=== PATIENT | female | born 1965 | race Caucasian/White ===

== ENCOUNTER 2016-10-20 08:13 | Emergency (ER) | payer BC, OTHER ==
[~2016-10-20] VITALS: Ht 170.2 cm; Wt 102.3 kg
[~2016-10-20 08:13] MED LIST: 12 HOUR DECONG120 M1 PO; ACTOS15 MG PO; ADVIL,NUPRIN,M200 MG PO; AFRIN,GENASAL D15 ML BOTH NARES; AMARYL4 MG PO; ASPIRIN81 M2 PO; CARVEDILOL3.125 MG PO; COUMADIN4 MG PO; COUMADIN5 MG PO; FAMOTIDINE20 MG PO; FLONASE16 G1 BOTH NARES; GLIMEPIRIDE4 MG PO; GLUCOPHAGE XR750 MG PO; HYDROCODON-ACE1 EAC7 PO; INVOKANA100 MG PO; INVOKANA300 MG PO; LANTUS 10100 UNITS/ SC; LANTUS 3 M100 UNITS1 SC; LIPITOR40 MG PO; LISINOPRIL2.5 MG PO; LOVENOX100 MG/1 M SC; METFORMIN HCL1000 MG PO; METFORMIN HCL500 MG PO; NEXIUM40 MG PO; NOVOLOG 10100 UNITS/ SC; PAXIL40 MG PO; PREDNISONE20 MG PO; PRILOSEC20 MG PO; SALINE NASAL SP45 ML BOTH NARES; TYLENOL WITH C1 EACH PO
[2016-10-20 08:30] VITALS: BP 122/88
[2016-10-20] MEDS ORDERED: AUGMENTIN875 MG PO (09:13)
[2016-10-20] MEDS ORDERED: METFORMIN HCL750 MG PO (09:41)
[2016-10-20] MEDS ORDERED: XARELTO20 MG PO (09:41)
[2016-10-20] MEDS ORDERED: BYDUREON P2 MG/0.65 SC (09:43)
== END 2016-10-20 09:49 | disposition home or self-care (01) ==
LOC: EME 08:13
PROC: 3E0234Z Introduction of Serum, Toxoid and Vaccine into Muscle, Percutaneous Approach (ICD-10-PCS; principal; 2016-10-20)
DX: S61.452A Open bite of left hand, initial encounter (principal); W54.0XXA Bitten by dog, initial encounter; E11.9 Type 2 diabetes mellitus without complications; Z79.84 Long term (current) use of oral hypoglycemic drugs
CPT/HCPCS: 73090; 73130; 99281; 99284

== ENCOUNTER 2016-12-14 11:59 | Emergency (ER) | payer BC, OTHER ==
[~2016-12-14] VITALS: Ht 170.2 cm; Wt 95.7 kg
[~2016-12-14 11:59] MED LIST changes: +AUGMENTIN875 MG PO; +BYDUREON P2 MG/0.65 SC; +METFORMIN HCL750 MG PO; +XARELTO20 MG PO
[2016-12-14 14:13] LABS: HEMATOCRIT 42.9 % (36.0-46.0); MCH 23.1 PG (29.0-34.0); MCHC 30.5 G/DL (30.0-36.0); MCV 75.5 FL (83-99); MEAN PLAT.VOLUME 10.6 uM^3 (9.5-12.4); PLATELET COUNT 335 K/uL (156-360); RBC DIS.WIDTH-CV 15.4 % (11.8-14.6); RBC DIS.WIDTH-SD 41.9 % (39-53); RED BLOOD COUNT 5.68 M/uL (3.80-5.20); WHITE BLOOD COUNT 19.9 K/uL (4.1-10.2)
[2016-12-14 14:26] LABS: CHLORIDE 106 mEq/L (99-109); POTASSIUM 3.1 mEq/L (3.7-5.4); SODIUM 143 mEq/L (136-147)
[2016-12-14 14:28] LABS: GLUCOSE 158 mg/dL (70-99)
[2016-12-14 14:29] LABS: ANION GAP 15 MEQ/L (2-14)
[2016-12-14 14:30] LABS: TOTAL BILIRUBIN 0.4 mg/dL (0.0-1.0)
[2016-12-14 14:32] LABS: ALKALINE PHOSPHATASE 155 IU/L (3-129); GFR ESTIMATE (CALCULATED) 56 mL/min/
[2016-12-14 14:33] LABS: UREA NITROGEN (BUN) 24 mg/dL (9-23)
[2016-12-14 14:35] LABS: LIPASE 5 U/L (1.0-51.0)
[2016-12-14 15:26] LABS: ADD MIUA? YES; BILIRUBIN MODERATE; BLOOD NEGATIVE; COLOR AMBER ((YELLOW)); GLUCOSE (STRIP) NEGATIVE; KETONES 20; LEUKOCYTES TRACE; NITRITE NEGATIVE; PROTEIN (STRIP) 100; SPECIFIC GRAVITY 1.038 (1.000-1.030); UROBILINOGEN 0.2 MG/DL (0.2-1.0)
[2016-12-14 15:44] LABS: BACTERIA NONE SEEN /HPF; EPITHELIAL CELLS 1+ /HPF; HYALINE CASTS 40-50 /LPF; MUCUS 4+ /LPF
[2016-12-14] MEDS ORDERED: BENTYL10 MG PO (15:56)
[2016-12-14] MEDS ORDERED: ZOFRAN ODT4 MG PO (15:56)
[2016-12-14] MEDS ORDERED: CIPRO500 MG PO (15:56)
[2016-12-14 16:06] LABS: ICTOTEST NEGATIVE
[2016-12-14 16:43] VITALS: BP 126/85
== END 2016-12-14 16:43 | disposition home or self-care (01) ==
LOC: EME 11:59
PROVIDERS: Nurse Practitioner Family
DX: K52.9 Noninfective gastroenteritis and colitis, unspecified (principal); K21.9 Gastro-esophageal reflux disease without esophagitis; E11.9 Type 2 diabetes mellitus without complications; Z79.84 Long term (current) use of oral hypoglycemic drugs; Z86.718 Personal history of other venous thrombosis and embolism; Z98.51 Tubal ligation status
CPT/HCPCS: 74177; 80053; 81003; 83605; 83690; 85027; 87493; 99281; 99284; J1885; J2405; J7030

== ENCOUNTER 2016-12-16 09:16 | Inpatient (IN) | payer BC, OTHER ==
[~2016-12-16] VITALS: Ht 170.2 cm; Wt 95.7 kg
[~2016-12-16 09:16] MED LIST changes: +BENTYL10 MG PO; +CIPRO500 MG PO; +ZOFRAN ODT4 MG PO
[2016-12-16 11:00] LABS: HEMATOCRIT 39.5 % (36.0-46.0); MCH 23.1 PG (29.0-34.0); MCHC 30.1 G/DL (30.0-36.0); MCV 76.7 FL (83-99); MEAN PLAT.VOLUME 10.8 uM^3 (9.5-12.4); PLATELET COUNT 272 K/uL (156-360); RBC DIS.WIDTH-CV 15.3 % (11.8-14.6); RBC DIS.WIDTH-SD 42.5 % (39-53); RED BLOOD COUNT 5.15 M/uL (3.80-5.20); WHITE BLOOD COUNT 18.2 K/uL (4.1-10.2)
[2016-12-16 11:10] LABS: CHLORIDE 109 mEq/L (99-109); POTASSIUM 3.5 mEq/L (3.7-5.4); SODIUM 146 mEq/L (136-147)
[2016-12-16 11:13] LABS: ANION GAP 14 MEQ/L (2-14)
[2016-12-16 11:16] LABS: GFR ESTIMATE (CALCULATED) > 59 mL/min/
[2016-12-16 11:17] LABS: UREA NITROGEN (BUN) 23 mg/dL (9-23)
[2016-12-16 11:18] LABS: GLUCOSE 118 mg/dL (70-99)
[2016-12-16 12:51] LABS: ADD MIUA? YES; BILIRUBIN NEGATIVE; BLOOD NEGATIVE; COLOR YELLOW ((YELLOW)); GLUCOSE (STRIP) NEGATIVE; KETONES 20; LEUKOCYTES NEGATIVE; NITRITE NEGATIVE; PROTEIN (STRIP) 30; SPECIFIC GRAVITY 1.023 (1.000-1.030); UROBILINOGEN 0.2 MG/DL (0.2-1.0)
[2016-12-16 13:01] LABS: BACTERIA RARE /HPF; EPITHELIAL CELLS RARE /HPF; MUCUS 4+ /LPF; RED BLOOD CELLS 0-5 /HPF (0-5); UCUL ADDED? NO; WHITE BLOOD CELLS 0-5 /HPF (0-5)
[2016-12-16 14:17] LABS: C DIFF TOXIN NEGATIVE (NEGATIVE)
[2016-12-16 14:21] LABS: PROBE CHECK PASS; SPECIMEN PROCESSING CONTROL PASS
[2016-12-16 15:45] VITALS: BP 126/74
[2016-12-16 21:22] LABS: POINT-OF-CARE METER ID UU13113725
[2016-12-16 23:25] VITALS: BP 107/59
[2016-12-17 06:33] LABS: BASOPHIL COUNT 0.1 K/uL (0-0.1); EOSINOPHIL (%) 24.5 % (0-5); EOSINOPHIL COUNT 3.5 K/uL (0-0.3); HEMATOCRIT 33.4 % (36.0-46.0); IMMATURE GRANULOCYTE (%) 1.7 % (0.0-0.7); IMMATURE GRANULOCYTE COUNT 0.3 K/uL; INSTRUMENT ABS NEUTROPHIL CT 6.7 K/uL; MCHC 29.9 G/DL (30.0-36.0); MEAN PLAT.VOLUME 10.5 uM^3 (9.5-12.4); MONOCYTE (%) 5.7 % (3-12); MONOCYTE COUNT 0.8 K/uL (0-0.8); NEUTROPHIL (%) 46.5 % (45-76); NEUTROPHIL COUNT 6.7 K/uL (1.8-6.4); PLATELET COUNT 219 K/uL (156-360); RBC DIS.WIDTH-CV 15.3 % (11.8-14.6); RBC DIS.WIDTH-SD 42.2 % (39-53); RED BLOOD COUNT 4.34 M/uL (3.80-5.20); WHITE BLOOD COUNT 14.4 K/uL (4.1-10.2)
[2016-12-17 06:38] LABS: POINT-OF-CARE METER ID UU13113725
[2016-12-17 06:55] LABS: ANION GAP 7 MEQ/L (2-14); CHLORIDE 110 MEQ/L (99-109); GFR ESTIMATE (CALCULATED) > 59 mL/min/; POTASSIUM 3.2 MEQ/L (3.7-5.4); SAMPLE HEMOLYSIS CHECK 0; SAMPLE ICTERIC CHECK 0; SAMPLE LIPEMIA CHECK 0; SODIUM 143 MEQ/L (136-147); UREA NITROGEN (BUN) 19 mg/dL (9-23)
[2016-12-17 06:57] LABS: GLUCOSE 84 mg/dL (70-99)
[2016-12-17 08:23] VITALS: BP 142/67
[2016-12-17 10:56] LABS: POINT-OF-CARE METER ID UU13113725
[2016-12-17] MEDS ORDERED: FLAGYL500 MG PO (15:02)
[2016-12-17] MEDS ORDERED: LEVAQUIN750 MG PO (15:03)
[2016-12-17 16:19] VITALS: BP 140/68
== END 2016-12-17 17:43 | disposition home or self-care (01) | DRG 392 ==
LOC: EME 09:16 → 5EAST 13:03 → EDOF 13:03 → ENRESERV 13:04 → 5EAST 15:15
PROVIDERS: Emergency Medicine; Hospitalist
DX: A09 Infectious gastroenteritis and colitis, unspecified (principal); E11.9 Type 2 diabetes mellitus without complications; E87.6 Hypokalemia; K21.9 Gastro-esophageal reflux disease without esophagitis; F32.9 Major depressive disorder, single episode, unspecified; F41.9 Anxiety disorder, unspecified; Z86.711 Personal history of pulmonary embolism; Z79.01 Long term (current) use of anticoagulants; Z79.84 Long term (current) use of oral hypoglycemic drugs; Z82.49 Family history of ischemic heart disease and other diseases of the circulatory system; Z83.3 Family history of diabetes mellitus
CPT/HCPCS: 80048; 81003; 82948; 83605; 85025; 85027; 87040; 87177; 87493; 87506; 99281; 99285; J1630; J1815; J1956; J2405; J3480; J7030; S0030

== ENCOUNTER 2016-12-22 20:42 | Emergency (ER) | payer BC, OTHER ==
[~2016-12-22] VITALS: Ht 170.2 cm; Wt 92.3 kg
[~2016-12-22 20:42] MED LIST changes: +FLAGYL500 MG PO; +LEVAQUIN750 MG PO
[2016-12-22 21:07] LABS: HEMATOCRIT 41.7 % (36.0-46.0); MCH 23.4 PG (29.0-34.0); MCHC 32.1 G/DL (30.0-36.0); MCV 72.8 FL (83-99); MEAN PLAT.VOLUME 11.1 uM^3 (9.5-12.4); PLATELET COUNT 193 K/uL (156-360); RBC DIS.WIDTH-CV 16.1 % (11.8-14.6); RBC DIS.WIDTH-SD 39.5 % (39-53); RED BLOOD COUNT 5.73 M/uL (3.80-5.20); WHITE BLOOD COUNT 18.5 K/uL (4.1-10.2)
[2016-12-22 21:10] LABS: CHLORIDE 99 mEq/L (99-109); POTASSIUM 3.1 mEq/L (3.7-5.4); SODIUM 139 mEq/L (136-147)
[2016-12-22 21:13] LABS: GLUCOSE 162 mg/dL (70-99)
[2016-12-22 21:14] LABS: ANION GAP 18 MEQ/L (2-14)
[2016-12-22 21:15] LABS: TOTAL BILIRUBIN 0.8 mg/dL (0.0-1.0)
[2016-12-22 21:16] LABS: ALKALINE PHOSPHATASE 120 IU/L (3-129); GFR ESTIMATE (CALCULATED) 56 mL/min/
[2016-12-22 21:17] LABS: UREA NITROGEN (BUN) 25 mg/dL (9-23)
[2016-12-22 21:25] LABS: QUANTITATIVE HCG < 4.0 MIU/ML
[2016-12-22 22:36] LABS: ADD MIUA? YES; BILIRUBIN SMALL; BLOOD NEGATIVE; COLOR AMBER ((YELLOW)); GLUCOSE (STRIP) NEGATIVE; KETONES 20; LEUKOCYTES SMALL; NITRITE NEGATIVE; PROTEIN (STRIP) 100; SPECIFIC GRAVITY 1.028 (1.000-1.030)
[2016-12-22 23:01] LABS: BACTERIA 1+ /HPF; EPITHELIAL CELLS 1+ /HPF; MUCUS 3+ /LPF; RED BLOOD CELLS NONE SEEN /HPF (0-5); UCUL ADDED? NO; WHITE BLOOD CELLS 0-5 /HPF (0-5)
[2016-12-22 23:02] LABS: CASTS PRESENT /LPF; CRYSTALS NONE SEEN
[2016-12-23] MEDS ORDERED: ZOFRAN4 MG PO (00:46)
[2016-12-23 03:13] VITALS: BP 118/81
== END 2016-12-23 03:14 | disposition home or self-care (01) ==
LOC: EME 20:42
DX: R11.10 Vomiting, unspecified (principal); K21.9 Gastro-esophageal reflux disease without esophagitis; F32.9 Major depressive disorder, single episode, unspecified; F41.9 Anxiety disorder, unspecified; Z79.84 Long term (current) use of oral hypoglycemic drugs; Z86.718 Personal history of other venous thrombosis and embolism; Z88.8 Allergy status to other drugs, medicaments and biological substances
CPT/HCPCS: 80053; 81003; 84702; 85027; 99281; 99285; J1100; J2060; J2405; J7030

== ENCOUNTER 2017-03-31 19:49 | Emergency (ER) | payer BC, OTHER ==
[~2017-03-31] VITALS: Ht 170.2 cm; Wt 97.1 kg
[~2017-03-31 19:49] MED LIST changes: +ZOFRAN4 MG PO
[2017-03-31 19:51] VITALS: BP 138/89
== END 2017-03-31 23:09 | disposition home or self-care (01) ==
LOC: EME 19:49
DX: I87.2 Venous insufficiency (chronic) (peripheral) (principal); M79.605 Pain in left leg; Z86.718 Personal history of other venous thrombosis and embolism; K21.9 Gastro-esophageal reflux disease without esophagitis; F41.9 Anxiety disorder, unspecified; F32.9 Major depressive disorder, single episode, unspecified; Z88.5 Allergy status to narcotic agent; Z88.6 Allergy status to analgesic agent
CPT/HCPCS: 93971; 99281; 99283

== ENCOUNTER 2017-09-09 02:04 | Observation (INO) | payer BC, OTHER ==
[2017-09-09] VITALS (7 sets, daily range): BP systolic 99–133; BP diastolic 56–90
[~2017-09-09] VITALS: Ht 165.1 cm; Wt 100.8 kg
[~2017-09-09 02:04] MED LIST changes: +GLUCOPHAGE1000 MG PO; -METFORMIN HCL750 MG PO
[2017-09-09 02:51] LABS: CHLORIDE 106 mEq/L (99-109)
[2017-09-09 02:52] LABS: POTASSIUM 3.9 mEq/L (3.7-5.4); SODIUM 138 mEq/L (136-147)
[2017-09-09 02:53] LABS: GLUCOSE 169 mg/dL (70-99)
[2017-09-09 02:57] LABS: CREATININE 0.9 mg/dL (0.6-1.3); GFR ESTIMATE (CALCULATED) > 59 mL/min/
[2017-09-09 02:58] LABS: UREA NITROGEN (BUN) 23 mg/dL (9-23)
[2017-09-09 03:20] LABS: HEMATOCRIT 31.1 % (36.0-46.0); HEMOGLOBIN 9.5 G/DL (11.9-15.5); MCHC 30.5 G/DL (30.0-36.0); PLATELET COUNT 229 K/uL (156-360); RBC DIS.WIDTH-CV 16.5 % (11.8-14.6); RBC DIS.WIDTH-SD 42.8 % (39-53); RED BLOOD COUNT 4.32 M/uL (3.80-5.20); WHITE BLOOD COUNT 13.7 K/uL (4.1-10.2)
[2017-09-09 03:36] LABS: TROP-I INTERPRETATION NEGATIVE; TROPONIN-I < 0.01 ng/mL (0.0-0.30)
[2017-09-09 04:26] LABS: APPEARANCE SL.HAZY ((CLEAR)); BILIRUBIN NEGATIVE; BLOOD NEGATIVE; COLOR YELLOW ((YELLOW)); GLUCOSE (STRIP) 50; KETONES NEGATIVE; LEUKOCYTES NEGATIVE; NITRITE NEGATIVE; PROTEIN (STRIP) NEGATIVE; UROBILINOGEN 0.2 MG/DL (0.2-1.0)
[2017-09-09 04:30] LABS: BACTERIA RARE /HPF; EPITHELIAL CELLS RARE /HPF; MUCUS TRACE /LPF; RED BLOOD CELLS 0-5 /HPF (0-5); UCUL ADDED? NO; WHITE BLOOD CELLS 0-5 /HPF (0-5)
[2017-09-09] MEDS ORDERED: LIPITOR20 MG PO (07:55)
[2017-09-09] MEDS ORDERED: ZESTRIL5 MG PO (07:55)
[2017-09-09 09:18] LABS: IRON 30 MCG/DL (35-150); TRANSFERRIN (TIBC) 367.4 mg/dL (215-380); TRANSFERRIN SATUR. 8 % (20-55)
[2017-09-10 00:08] VITALS: BP 133/77
[2017-09-10 03:49] VITALS: BP 115/67
[2017-09-10 05:19] LABS: BASOPHIL (%) 0.6 % (0-1); BASOPHIL COUNT 0.1 K/uL (0-0.1); EOSINOPHIL (%) 2.7 % (0-5); EOSINOPHIL COUNT 0.2 K/uL (0-0.3); HEMATOCRIT 27.2 % (36.0-46.0); HEMOGLOBIN 8.1 G/DL (11.9-15.5); IMMATURE GRANULOCYTE (%) 0.1 % (0.0-0.7); LYMPHOCYTE (%) 46.2 % (15-42); LYMPHOCYTE COUNT 3.9 K/uL (1.0-2.8); MCH 21.4 PG (29.0-34.0); MCHC 29.8 G/DL (30.0-36.0); MONOCYTE (%) 7.8 % (3-12); MONOCYTE COUNT 0.7 K/uL (0-0.8); NEUTROPHIL (%) 42.6 % (45-76); NEUTROPHIL COUNT 3.6 K/uL (1.8-6.4); PLATELET COUNT 188 K/uL (156-360); RBC DIS.WIDTH-CV 16.9 % (11.8-14.6); RBC DIS.WIDTH-SD 43.8 % (39-53); RED BLOOD COUNT 3.78 M/uL (3.80-5.20); WHITE BLOOD COUNT 8.4 K/uL (4.1-10.2)
[2017-09-10 05:32] LABS: ALBUMIN 3.2 G/DL (3.2-4.8); ALKALINE PHOSPHATASE 62 IU/L (3-129); ALT (GPT) 10 IU/L (3-49); AST (GOT) 12 IU/L (2-34); CHLORIDE 110 MEQ/L (99-109); CREATININE 0.8 MG/DL (0.6-1.3); DIRECT BILIRUBIN 0.1 mg/dL (0.0-0.3); GFR ESTIMATE (CALCULATED) > 59 mL/min/; GLUCOSE 151 mg/dL (70-99); POTASSIUM 3.9 MEQ/L (3.7-5.4); SODIUM 141 MEQ/L (136-147); TOTAL BILIRUBIN 0.4 MG/DL (0.0-1.0); TOTAL PROTEIN 5.7 G/DL (6.4-8.3); UREA NITROGEN (BUN) 16 mg/dL (9-23)
[2017-09-10 08:08] VITALS: BP 109/68; BP 116/64
[2017-09-10 08:09] VITALS: BP 123/69
== END 2017-09-10 12:44 | disposition home or self-care (01) ==
LOC: EME 02:04 → EDOF 07:33 → 4SOUTH 07:33 → EDOF 07:33 → ENRESERV 07:37 → 4SOUTH 09:24
PROVIDERS: Emergency Medicine; Hospitalist; Physician Assistant
DX: R55 Syncope and collapse (principal); D72.829 Elevated white blood cell count, unspecified; D64.9 Anemia, unspecified; E11.9 Type 2 diabetes mellitus without complications; Z79.84 Long term (current) use of oral hypoglycemic drugs; Z86.718 Personal history of other venous thrombosis and embolism; Z79.01 Long term (current) use of anticoagulants; F41.9 Anxiety disorder, unspecified; Z82.49 Family history of ischemic heart disease and other diseases of the circulatory system; Z82.3 Family history of stroke; Z82.5 Family history of asthma and other chronic lower respiratory diseases; Z80.49 Family history of malignant neoplasm of other genital organs; Z88.5 Allergy status to narcotic agent
CPT/HCPCS: 70450; 71046; 80048; 80076; 81003; 82272; 82948; 83540; 84466; 84484; 85025; 85027; 93005; 93971; 99281; 99285; G0378; J1815; J7030